=== PATIENT | female | born 1990 | race Caucasian/White ===

== ENCOUNTER 2018-08-17 16:16 | Emergency (ER) | payer OTHER | END 2018-08-17 22:34 | disposition home or self-care (01) | LOC: JER 16:16 ==

== ENCOUNTER 2018-08-21 11:06 | Inpatient (IN) | payer OTHER | END 2018-08-26 11:34 | disposition home or self-care (01) | LOC: JER 11:06 → JERBED 16:22 → J5S 19:09 ==

== ENCOUNTER 2023-05-01 08:02 | Emergency (ER) | payer OTHER ==
[2023-05-01 08:11] VITALS: BP 127/76; PULSE 78; RESP 18; TEMP 98.3; BMI 28.5
[2023-05-01] MEDS ORDERED: KETOROLAC TROMETHAMINE 30 MG/1 ML VIAL ONE (08:24)
[2023-05-01] MEDS: KETOROLAC TROMETHAMINE 30 MG/1 ML VIAL IM ONE (08:32)
== END 2023-05-01 10:38 | disposition home or self-care (01) ==
LOC: FER 08:02
PROC: 3E0233Z Introduction of Anti-inflammatory into Muscle, Percutaneous Approach (ICD-10-PCS; principal; 2023-05-01)
DX: S93.402A Sprain of unspecified ligament of left ankle, initial encounter (principal); X50.9XXA Other and unspecified overexertion or strenuous movements or postures, initial encounter
CPT/HCPCS: 73590-TC-LT-FY; 73610-TC-LT-FY; 73630-TC-LT; 99284-25